=== PATIENT | female | born 1955 | race Caucasian/White ===

== ENCOUNTER 2018-02-13 03:06 | Emergency (ER) | payer OTHER, SELFPAY ==
[2018-02-13] MEDS ORDERED: HYDROcodone/Acetaminophen 5/325 mg Tablet ONE ×2 (04:47→05:23)
[2018-02-13 05:00] LABS: #Basophils 0.1 thou/uL (0.0-0.2); #Eosinphils 0.1 thou/uL (0.0-0.7); #Lymphocytes 2.4 thou/uL (1.20-3.40); #Monocytes 0.7 thou/uL (0.11-0.59); #Neutrophils 9.3 thou/uL (1.40-6.50); %Basophils 0.7 % (0.0-1.0); %Lymphocytes 18.9 % (21.0-51.0); %Monocytes 5.3 % (0.0-10.0); Hemoglobin 14.4 g/dL (12.0-16.0); Mean Corpuscular HGB CONC 33.6 g/dL (32.0-36.0); Mean Corpuscular Hemoglobin 29.7 pg (27.0-31.0); Mean Corpuscular Volume 88.4 fL (78.0-98.0); Mean Platelet Volume 6.6 fL (7.4-10.4); Platelet Count 385 thou/uL (130-400); RBC Distribution Width 14.4 % (11.5-14.5); Red Blood Cell (RBC) Count 4.87 mill/uL (4.20-5.40); White Blood Cell (WBC) Count 12.6 thou/uL (4.8-10.8)
[2018-02-13 05:17] LABS: ALT (SGPT) 9 U/L (8-55); AST (SGOT) 13 U/L (5-34); Alkaline Phosphatase 146 U/L (40-150); Anion Gap 18 mmol/L (10-20); BUN (Urea Nitrogen) 12 mg/dL (9.8-20.1); Bilirubin, Total 0.2 mg/dL (0.2-1.2); Calc. Creatinine Clearance 0 mL/min (70-130); Calcium 9.9 mg/dL (7.8-10.44); Carbon Dioxide 22 mmol/L (23-31); Chloride 102 mmol/L (98-107); Estimated GFR-MDRD 75; Globulin 3.7 g/dL (2.4-3.5); Glucose 107 mg/dL (80-115); Lipase 14 U/L (8-78); Potassium 4.1 mmol/L (3.5-5.1); Protein, Total 7.7 g/dL (6.0-8.3); Sodium 138 mmol/L (136-145)
[2018-02-13 05:20] LABS: Bilirubin Negative (Negative); Blood, Urine Negative (Negative); Clarity CLEAR (Clear); Glucose, Urine (Dipstick) Negative (Negative); Leukocyte Negative (Negative); Nitrite Negative (Negative); Protein, Urine (Dipstick) Negative (Neg-Trace); Specific Gravity, Urine 1.017 (1.002-1.036); Urobilinogen 0.2 mg/dL (0.2-1.0); pH, Urine 6.5 (5.0-9.0)
[2018-02-13 05:20] LABS: CKMB 2.2 ng/mL (0-6.6); Troponin I Less than 0.010 ng/mL (< 0.028)
[2018-02-13] MEDS ORDERED: diphenhydrAMINE 25 MG CAP ONE (05:23)
[2018-02-13] MEDS ORDERED: Haloperidol Lactate 5 MG/ML VIAL ONE (07:31)
[2018-02-13 07:45] LABS: Cocaine Metabolite Screen Not Detected (NotDetected); Medtox Reader # READER 1; Phencyclidine (PCP) Not Detected (NotDetected); THC/Cannabinoid Screen Not Detected (NotDetected)
[2018-02-13 07:46] LABS: Amphetamine Not Detected (NotDetected); Barbiturates Screen Not Detected (NotDetected); Benzodiazepine Screen Detected (NotDetected); Medtox Control Line Valid? VALID (VALID); Methadone Not Detected (NotDetected); Methamphetamine Not Detected (NotDetected); Opiate Screen Not Detected (NotDetected); Oxycodone Screen Not Detected (NotDetected); Tricyclic Screen Detected (NotDetected)
[2018-02-13 07:56] LABS: Acetaminophen Less than 6.0 mcg/mL (10.0-30.0); Alcohol Less than 10 mg/dL (Less than 10); Salicylate Less than 8.0 mg/dL (15.0-30.0)
--- NOTE | 2018-02-13 08:59 | RAD ---
LEFT KNEE 4 VIEWS: HISTORY: Fall, left knee pain. FINDINGS: Degenerative changes are present. No acute fracture or dislocation is identified. POS: [facility]
[2018-02-13] MEDS ORDERED: buPROPion HCl 100 MG TAB PO SCH ×2 (09:15→13:00)
--- NOTE | 2018-02-13 09:31 | RAD ---
PORTABLE CHEST 1 VIEW: DATE: 02/13/18. TIME: 3:15 a.m. HISTORY: Fall. FINDINGS: Comparison is made with the exam of 11/17/16. The heart size is normal. The lungs are expanded without focal areas of consolidation, pneumothorax, or pleural effusions. Chronic changes are again seen. IMPRESSION: No acute process. POS: [facility]
[2018-02-13] MEDS ORDERED: ELMIRON PO SCH (13:00)
[2018-02-13] MEDS ORDERED: ISOVUE-370 76%-LOCM 1 ML ONE (15:02)
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
[2018-02-13] MEDS ORDERED: Acetaminophen 325 MG TAB ONE (16:59)
[2018-02-13] MEDS ORDERED: Albuterol Sulfate 2.5 mg/0.5 ml Neb ONE (21:32)
[2018-02-14] MEDS ORDERED: Lorazepam 1 MG TAB ONE (06:07)
[2018-02-14] MEDS ORDERED: hydrOXYzine 25 MG TAB ONE (15:45)
[2018-02-14] MEDS ORDERED: hydrOXYzine Pamoate 25 mg Capsule ONE (15:47)
== END 2018-02-13 23:25 | disposition home or self-care (01) ==
LOC: ERS 03:06
DX: S80.01XA Contusion of right knee, initial encounter (principal); F29 Unspecified psychosis not due to a substance or known physiological condition; E78.5 Hyperlipidemia, unspecified; M19.90 Unspecified osteoarthritis, unspecified site; J44.9 Chronic obstructive pulmonary disease, unspecified; F41.9 Anxiety disorder, unspecified; F32.9 Major depressive disorder, single episode, unspecified; F17.210 Nicotine dependence, cigarettes, uncomplicated; Z79.899 Other long term (current) drug therapy; W19.XXXA Unspecified fall, initial encounter
CPT/HCPCS: 36415; 51701; 70450; 71045; 74177; 80053; 80306; 80307; 81003; 82553; 83690; 84443; 84484; 85025; 93005; 96372; A4353; J1630; J7611; J7620

== ENCOUNTER 2019-05-14 07:54 | Emergency (ER) | payer SELFPAY ==
[2019-05-14 08:42] LABS: Bilirubin Negative (Negative); Blood, Urine Negative (Negative); Clarity Clear (Clear); Glucose, Urine (Dipstick) Normal (Negative); Leukocyte Negative Leu/uL (Negative); Nitrite Negative (Negative); Protein, Urine (Dipstick) Negative (Neg-Trace); Urobilinogen Normal mg/dL (Less than 2)
== END 2019-05-14 09:12 | disposition home or self-care (01) ==
LOC: ERS 07:54
DX: R30.0 Dysuria (principal); R10.30 Lower abdominal pain, unspecified; I10 Essential (primary) hypertension; J44.9 Chronic obstructive pulmonary disease, unspecified; F17.210 Nicotine dependence, cigarettes, uncomplicated
CPT/HCPCS: 81003; 87086; 99283

== ENCOUNTER 2021-02-17 08:00 | Inpatient (IN) | payer MEDICARE ==
[2021-02-17] MEDS ORDERED: methylPREDNISolone Sod Succ/PF 125 MG/2 ML VIAL ONE (08:24)
[2021-02-17 08:53] LABS: #Basophils 0.1 thou/uL (0.0-0.2); #Eosinphils 0.5 thou/uL (0.0-0.7); #Lymphocytes 2.1 thou/uL (1.20-3.40); #Monocytes 0.6 thou/uL (0.11-0.59); #Neutrophils 4.5 thou/uL (1.40-6.50); %Basophils 0.9 % (0.0-1.0); %Eosinophils 6.4 % (0.0-10.0); %Lymphocytes 27.4 % (21.0-51.0); %Monocytes 7.1 % (0.0-10.0); %Neutrophils 58.2 % (42.0-75.0); Hemoglobin 14.1 g/dL (12.0-16.0); Mean Corpuscular HGB CONC 33.6 g/dL (32.0-36.0); Mean Corpuscular Hemoglobin 29.9 pg (27.0-31.0); Mean Corpuscular Volume 89.1 fL (78.0-98.0); Mean Platelet Volume 6.9 fL (7.4-10.4); Platelet Count 313 thou/uL (130-400); Red Blood Cell (RBC) Count 4.73 mill/uL (4.20-5.40); White Blood Cell (WBC) Count 7.8 thou/uL (4.8-10.8)
[2021-02-17 09:11] LABS: ALT (SGPT) 14 U/L (8-55); AST (SGOT) 15 U/L (5-34); Albumin 4.1 g/dL (3.4-4.8); Alkaline Phosphatase 111 U/L (40-110); Anion Gap 14 mmol/L (10-20); BUN (Urea Nitrogen) 16 mg/dL (9.8-20.1); Bilirubin, Total 0.2 mg/dL (0.2-1.2); Calc. Creatinine Clearance 0 mL/min (70-130); Calcium 9.9 mg/dL (7.8-10.44); Carbon Dioxide 22 mmol/L (23-31); Chloride 107 mmol/L (98-107); Globulin 3.5 g/dL (2.4-3.5); Glucose 110 mg/dL (80-115); Magnesium 1.7 mg/dL (1.6-2.6); Protein, Total 7.6 g/dL (5.8-8.1); Sodium 139 mmol/L (136-145)
[2021-02-17] MEDS ORDERED: Iopamidol-370 76% 500 ML 1 ML ONE (09:50)
[2021-02-17] MEDS ORDERED: cefTRIAXone\\ROCEPHIN 2 GM VIAL ONE (14:15)
[2021-02-17 15:05] LABS: SARS-CoV-2 NAA Rapid Test Not Detected (NotDetected)
[2021-02-17 15:21] LABS: Troponin I Less than 0.010 ng/mL (< 0.028)
[2021-02-17] MEDS ORDERED: Acetaminophen 325 MG TAB PO PRN (16:49)
[2021-02-17 19:04] VITALS: BMI 27.6
[2021-02-17] MEDS ORDERED: Calcium Carbonate 500 MG ChewTAB PO PRN (22:54)
[2021-02-17] MEDS ORDERED: lamoTRIgine 100 MG TAB PO SCH (23:00)
[2021-02-18] LABS: Bacteria/HPF None Seen HPF (None Seen); Bilirubin Negative (Negative); Blood, Urine Negative (Negative); Clarity Clear (Clear); Glucose, Urine (Dipstick) Normal (Negative); Ketone, Urine Negative (Negative); Leukocyte Negative Leu/uL (Negative); Nitrite Negative (Negative); Protein, Urine (Dipstick) Negative (Neg-Trace); RBC/HPF 0-3 HPF (0-3); Squamous Epithelial 0-3 HPF (0-3); Urobilinogen Normal mg/dL (Less than 2); WBC/HPF 0-3 HPF (0-3); pH, Urine 6.5 (5.0-9.0)
[2021-02-18 00:07] LABS: Amphetamine Not Detected (NotDetected); Barbiturates Screen Not Detected (NotDetected); Benzodiazepine Screen Not Detected (NotDetected); Cocaine Metabolite Screen Not Detected (NotDetected); Methadone Not Detected (NotDetected); Methamphetamine Not Detected (NotDetected); Opiate Screen Not Detected (NotDetected); Oxycodone Screen Not Detected (NotDetected); Phencyclidine (PCP) Not Detected (NotDetected); THC/Cannabinoid Screen Not Detected (NotDetected); Tricyclic Screen Detected (NotDetected)
[2021-02-18 00:08] LABS: Urine Culture Reflex No No
[2021-02-18] MEDS: Ibuprofen 200 MG TAB PO PRN ×2 (02:09→20:47)
[2021-02-18] MEDS ORDERED: Doxepin HCl 25 MG CAP PO SCH ×2 (03:45→21:00)
[2021-02-18 05:17] LABS: #Lymphocytes 1.8 thou/uL (1.20-3.40); #Monocytes 0.9 thou/uL (0.11-0.59); #Neutrophils 7.9 thou/uL (1.40-6.50); %Basophils 0.2 % (0.0-1.0); %Eosinophils 0.1 % (0.0-10.0); %Lymphocytes 16.8 % (21.0-51.0); %Monocytes 8.2 % (0.0-10.0); %Neutrophils 74.7 % (42.0-75.0); Hemoglobin 13.3 g/dL (12.0-16.0); Mean Corpuscular HGB CONC 33.8 g/dL (32.0-36.0); Mean Corpuscular Volume 88.9 fL (78.0-98.0); Mean Platelet Volume 6.9 fL (7.4-10.4); Platelet Count 334 thou/uL (130-400); RBC Distribution Width 12.1 % (11.5-14.5); Red Blood Cell (RBC) Count 4.41 mill/uL (4.20-5.40); White Blood Cell (WBC) Count 10.6 thou/uL (4.8-10.8)
[2021-02-18 05:36] LABS: Anion Gap 13 mmol/L (10-20); BUN (Urea Nitrogen) 18 mg/dL (9.8-20.1); Calc. Creatinine Clearance 82 mL/min (70-130); Carbon Dioxide 23 mmol/L (23-31); Chloride 106 mmol/L (98-107); Glucose 105 mg/dL (80-115); Potassium 3.8 mmol/L (3.5-5.1); Sodium 138 mmol/L (136-145)
[2021-02-18] MEDS: Polyethylene Glycol 3350 17 GM Packet PO SCH (10:15)
[2021-02-18] MEDS: Enoxaparin Sodium 40 MG/0.4 ML SYRINGE SC SCH (10:15)
[2021-02-18] MEDS: Propranolol 10 MG TAB PO SCH ×2 (12:03→19:32)
[2021-02-18] MEDS ORDERED: lamoTRIgine 100 MG TAB PO SCH (21:00)
[2021-02-19] MEDS: Propranolol 10 MG TAB PO SCH ×3 (00:53→11:23)
[2021-02-19] MEDS: Polyethylene Glycol 3350 17 GM Packet PO SCH (08:24)
[2021-02-19] MEDS: Enoxaparin Sodium 40 MG/0.4 ML SYRINGE SC SCH (08:24)
[2021-02-19 15:38] VITALS: BP 180/111; TEMP 98.6
== END 2021-02-19 17:03 | disposition home or self-care (01) | DRG 880 ==
LOC: ERS 08:00 → 2NO 14:14 → INTOOBSV 14:14 → OBSVTOIN 02-18 15:49
PROVIDERS: ADMIT Family Medicine; ATTEND Family Medicine
DX: F41.9 Anxiety disorder, unspecified (principal); Z20.822 Contact with and (suspected) exposure to COVID-19; T43.501A Poisoning by unspecified antipsychotics and neuroleptics, accidental (unintentional), initial encounter; F39 Unspecified mood [affective] disorder; G47.00 Insomnia, unspecified; F31.9 Bipolar disorder, unspecified; I45.81 Long QT syndrome; R07.89 Other chest pain; J44.9 Chronic obstructive pulmonary disease, unspecified; I10 Essential (primary) hypertension; M19.90 Unspecified osteoarthritis, unspecified site; G89.29 Other chronic pain; M25.559 Pain in unspecified hip; M54.9 Dorsalgia, unspecified; Z96.641 Presence of right artificial hip joint; I49.3 Ventricular premature depolarization; T48.6X5A Adverse effect of antiasthmatics, initial encounter; Z88.1 Allergy status to other antibiotic agents; Z88.5 Allergy status to narcotic agent; Z88.0 Allergy status to penicillin; Z79.899 Other long term (current) drug therapy; Z82.3 Family history of stroke; Z82.49 Family history of ischemic heart disease and other diseases of the circulatory system; Z87.891 Personal history of nicotine dependence; Z91.5 Personal history of self-harm
CPT/HCPCS: 0240U; 36415; 71045; 71275; 80048; 80053; 80306; 81001; 83735; 83880; 84145; 84443; 84484; 85025; 85379; 87040; 93005; 93010; 94640; 96365; 96372; 96375; G0378; J0696; J1650; J2930; J7620; Q9967

== ENCOUNTER 2021-03-31 10:15 | Inpatient (IN) | payer MEDICARE ==
[2021-03-31 11:04] LABS: #Eosinphils 0.2 thou/uL (0.0-0.7); #Lymphocytes 2.5 thou/uL (1.20-3.40); #Monocytes 0.7 thou/uL (0.11-0.59); %Basophils 0.4 % (0.0-1.0); %Eosinophils 1.4 % (0.0-10.0); %Lymphocytes 21.7 % (21.0-51.0); %Monocytes 6.1 % (0.0-10.0); %Neutrophils 70.4 % (42.0-75.0); Hemoglobin 13.4 g/dL (12.0-16.0); Mean Corpuscular HGB CONC 32.5 g/dL (32.0-36.0); Mean Corpuscular Hemoglobin 29.8 pg (27.0-31.0); Mean Corpuscular Volume 91.5 fL (78.0-98.0); Mean Platelet Volume 7.3 fL (7.4-10.4); Platelet Count 353 thou/uL (130-400); RBC Distribution Width 12.3 % (11.5-14.5); Red Blood Cell (RBC) Count 4.49 mill/uL (4.20-5.40); White Blood Cell (WBC) Count 11.4 thou/uL (4.8-10.8)
[2021-03-31 11:18] LABS: Acetaminophen Less than 6.0 mcg/mL (10.0-30.0); Alcohol Less than 10 mg/dL (Less than 10); CK (CPK) 22 U/L (29-168); Magnesium 1.6 mg/dL (1.6-2.6); Salicylate Less than 8.0 mg/dL (15.0-30.0)
[2021-03-31 11:21] LABS: ALT (SGPT) 22 U/L (8-55); AST (SGOT) 19 U/L (5-34); Albumin 3.7 g/dL (3.4-4.8); Alkaline Phosphatase 78 U/L (40-110); BUN (Urea Nitrogen) 23 mg/dL (9.8-20.1); Bilirubin, Total 0.3 mg/dL (0.2-1.2); Calc. Creatinine Clearance 0 mL/min (70-130); Calcium 11.8 mg/dL (7.8-10.44); Globulin 2.7 g/dL (2.4-3.5); Glucose 117 mg/dL (80-115); Protein, Total 6.4 g/dL (5.8-8.1)
[2021-03-31] MEDS ORDERED: Sodium Bicarb 50 MEQ/50 ML Abboject 8.4% SYRINGE ONE ×2 (11:23→13:03)
[2021-03-31 11:30] LABS: Chloride 93 mmol/L (98-107); Potassium 3.7 mmol/L (3.5-5.1); Sodium 143 mmol/L (136-145)
[2021-03-31 11:33] LABS: Anion Gap 17 mmol/L (10-20); Carbon Dioxide 37 mmol/L (23-31)
[2021-03-31 12:27] LABS: Bilirubin Negative (Negative); Blood, Urine Negative (Negative); Clarity Turbid (Clear); Glucose, Urine (Dipstick) Normal (Negative); Ketone, Urine Negative (Negative); Leukocyte Negative Leu/uL (Negative); Nitrite Negative (Negative); Protein, Urine (Dipstick) Negative (Neg-Trace); Specific Gravity, Urine 1.013 (1.002-1.036); Urobilinogen Normal mg/dL (Less than 2); pH, Urine 7.5 (5.0-9.0)
[2021-03-31] MEDS ORDERED: Sodium Bicarbonate 150 MEQ in Dextrose 5% in Water 1,000 ML IV SCH ×2 (12:45→15:45)
[2021-03-31 12:46] LABS: Amphetamine Not Detected (NotDetected); Barbiturates Screen Not Detected (NotDetected); Benzodiazepine Screen Not Detected (NotDetected); Cocaine Metabolite Screen Not Detected (NotDetected); Methadone Not Detected (NotDetected); Methamphetamine Not Detected (NotDetected); Opiate Screen Not Detected (NotDetected); Oxycodone Screen Not Detected (NotDetected); Phencyclidine (PCP) Not Detected (NotDetected); THC/Cannabinoid Screen Not Detected (NotDetected); Tricyclic Screen Detected (NotDetected)
[2021-03-31] MEDS ORDERED: Magnesium 2 GM/50 ML BAG (IN WATER) ONE (12:48)
[2021-03-31] MEDS ORDERED: Acetaminophen 325 MG TAB PO PRN (15:24)
[2021-03-31 16:03] VITALS: BMI 24.9
[2021-03-31] MEDS ORDERED: Albuterol Sulfate 2.5 mg/3 ml Neb NEB PRN (16:52)
[2021-03-31] MEDS ORDERED: Lorazepam 2 MG/ML VIAL SLOW IVP PRN (16:59)
[2021-03-31 17:40] LABS: Troponin I Less than 0.010 ng/mL (< 0.028)
[2021-03-31 18:33] LABS: Anion Gap 20 mmol/L (10-20); BUN (Urea Nitrogen) 20 mg/dL (9.8-20.1); Calc. Creatinine Clearance 44 mL/min (70-130); Calcium 10.5 mg/dL (7.8-10.44); Carbon Dioxide 33 mmol/L (23-31); Chloride 97 mmol/L (98-107); Glucose 130 mg/dL (80-115); Potassium 3.4 mmol/L (3.5-5.1); Sodium 147 mmol/L (136-145)
[2021-03-31] MEDS: Budesonide 0.25 MG/2 ML NEB NEB SCH (18:47)
[2021-03-31] MEDS: Atorvastatin Calcium 40 MG TAB PO SCH (21:09)
[2021-03-31 22:20] LABS: Actual Bicarbonate (HCO3a) 44.7 mEq/L (22-28); Base Excess (BEa) 20.2 mEq/L (-2.0 to +3.0); CO2 Tension 49.2 mmHg (35.0-45.0); Calcium, Ionized (arterial) 1.17 mmol/L (1.12-1.30); Carboxyhemoglobin (COHb) 0.1 gm% (0.0-3.0); Hemoglobin (Hb) 12.2 g/dL (12.0-16.0); Potassium - ABG Lab 2.43 mmol/L (3.70-5.30)
[2021-03-31 22:21] LABS: pH, Arterial 7.58 (7.35-7.45)
[2021-03-31 22:22] LABS: O2 Tension (PaO2), arterial 58.9 mmHg (> 80.0); Puncture Site RRA
[2021-03-31 22:56] LABS: BUN (Urea Nitrogen) 17 mg/dL (9.8-20.1); Calc. Creatinine Clearance 48 mL/min (70-130); Glucose 96 mg/dL (80-115); Magnesium 1.7 mg/dL (1.6-2.6)
[2021-03-31 23:10] LABS: Anion Gap 20 mmol/L (10-20); Carbon Dioxide 36 mmol/L (23-31); Chloride 92 mmol/L (98-107); Potassium 2.7 mmol/L (3.5-5.1); Sodium 145 mmol/L (136-145)
[2021-03-31] MEDS ORDERED: Potassium Chloride 20 MEQ in Premix Bag 1 BAG IVPB SCH (23:30)
[2021-03-31] MEDS ORDERED: Potassium Chloride 20 MEQ TAB PO SCH (23:30)
[2021-04-01 00:36] LABS: SARS-CoV-2 PCR by NAA Not Detected (NotDetected)
[2021-04-01 01:04] LABS: Actual Bicarbonate (HCO3a) 44.8 mEq/L (22-28); Base Excess (BEa) 19.9 mEq/L (-2.0 to +3.0); CO2 Tension 51.3 mmHg (35.0-45.0); Calcium, Ionized (arterial) 1.18 mmol/L (1.12-1.30); Carboxyhemoglobin (COHb) 0.1 gm% (0.0-3.0); Hemoglobin (Hb) 12.2 g/dL (12.0-16.0); O2 Tension (PaO2), arterial 63.7 mmHg (> 80.0); Potassium - ABG Lab 2.95 mmol/L (3.70-5.30)
[2021-04-01 01:06] LABS: ALV-art Gradient 21.905 mmHg (0-20); Puncture Site LRA; pH, Arterial 7.56 (7.35-7.45)
[2021-04-01] MEDS ORDERED: Potassium Chloride 20 MEQ TAB PO SCH ×2 (01:30→07:00)
[2021-04-01 01:34] LABS: BUN (Urea Nitrogen) 16 mg/dL (9.8-20.1); Calc. Creatinine Clearance 45 mL/min (70-130); Calcium 10.1 mg/dL (7.8-10.44); Glucose 101 mg/dL (80-115); Magnesium 1.6 mg/dL (1.6-2.6)
[2021-04-01 01:44] LABS: Anion Gap 12 mmol/L (10-20); Chloride 93 mmol/L (98-107); Potassium 3.1 mmol/L (3.5-5.1); Sodium 144 mmol/L (136-145)
[2021-04-01 01:48] LABS: Carbon Dioxide 42 mmol/L (23-31)
[2021-04-01 05:19] LABS: #Basophils 0.1 thou/uL (0.0-0.2); #Eosinphils 0.3 thou/uL (0.0-0.7); #Lymphocytes 1.7 thou/uL (1.20-3.40); #Monocytes 0.6 thou/uL (0.11-0.59); #Neutrophils 6.3 thou/uL (1.40-6.50); %Basophils 0.8 % (0.0-1.0); %Eosinophils 3.3 % (0.0-10.0); %Lymphocytes 18.6 % (21.0-51.0); %Neutrophils 70.4 % (42.0-75.0); Hemoglobin 11.6 g/dL (12.0-16.0); Mean Corpuscular HGB CONC 30.5 g/dL (32.0-36.0); Mean Corpuscular Hemoglobin 27.6 pg (27.0-31.0); Mean Corpuscular Volume 90.5 fL (78.0-98.0); Mean Platelet Volume 7.1 fL (7.4-10.4); Platelet Count 324 thou/uL (130-400); RBC Distribution Width 12.3 % (11.5-14.5)
[2021-04-01 05:44] LABS: ALT (SGPT) 23 U/L (8-55); AST (SGOT) 24 U/L (5-34); Albumin 3.3 g/dL (3.4-4.8); Alkaline Phosphatase 73 U/L (40-110); BUN (Urea Nitrogen) 15 mg/dL (9.8-20.1); Bilirubin, Total 0.4 mg/dL (0.2-1.2); Calc. Creatinine Clearance 45 mL/min (70-130); Calcium 9.7 mg/dL (7.8-10.44); Globulin 2.4 g/dL (2.4-3.5); Glucose 124 mg/dL (80-115); Magnesium 1.6 mg/dL (1.6-2.6); Protein, Total 5.7 g/dL (5.8-8.1)
[2021-04-01 05:53] LABS: Anion Gap 10 mmol/L (10-20); Chloride 94 mmol/L (98-107); Potassium 3.2 mmol/L (3.5-5.1); Sodium 143 mmol/L (136-145)
[2021-04-01 05:54] LABS: Carbon Dioxide 42 mmol/L (23-31)
[2021-04-01] MEDS ORDERED: Magnesium Sulfate 2 GM in Sodium Chloride 0.9% 100 ML IVPB SCH (06:30)
[2021-04-01] MEDS ORDERED: Magnesium 2 GM/50 ML 2 GM in Premix Bag 1 BAG IVPB SCH (07:00)
[2021-04-01] MEDS: lamoTRIgine 100 MG TAB PO SCH (08:12)
[2021-04-01] MEDS ORDERED: Lisinopril 10 MG TAB PO SCH (09:00)
[2021-04-01] MEDS: Budesonide 0.25 MG/2 ML NEB NEB SCH ×2 (09:57→18:52)
[2021-04-01] MEDS ORDERED: hydrALAZINE 20 MG/ML VIAL SLOW IVP PRN (14:11)
[2021-04-01] MEDS: Atorvastatin Calcium 40 MG TAB PO SCH (21:53)
[2021-04-02 05:10] LABS: #Basophils 0.1 thou/uL (0.0-0.2); #Eosinphils 0.6 thou/uL (0.0-0.7); #Lymphocytes 2.1 thou/uL (1.20-3.40); #Monocytes 0.6 thou/uL (0.11-0.59); #Neutrophils 5.3 thou/uL (1.40-6.50); %Basophils 1.1 % (0.0-1.0); %Eosinophils 6.7 % (0.0-10.0); %Lymphocytes 24.1 % (21.0-51.0); %Monocytes 7.2 % (0.0-10.0); %Neutrophils 60.8 % (42.0-75.0); Hemoglobin 11.8 g/dL (12.0-16.0); Mean Corpuscular HGB CONC 32.2 g/dL (32.0-36.0); Mean Corpuscular Hemoglobin 28.8 pg (27.0-31.0); Mean Corpuscular Volume 89.7 fL (78.0-98.0); Mean Platelet Volume 7.5 fL (7.4-10.4); Platelet Count 324 thou/uL (130-400); RBC Distribution Width 12.3 % (11.5-14.5); Red Blood Cell (RBC) Count 4.11 mill/uL (4.20-5.40); White Blood Cell (WBC) Count 8.8 thou/uL (4.8-10.8)
[2021-04-02 05:33] LABS: ALT (SGPT) 36 U/L (8-55); AST (SGOT) 36 U/L (5-34); Albumin 3.4 g/dL (3.4-4.8); Alkaline Phosphatase 90 U/L (40-110); Anion Gap 14 mmol/L (10-20); BUN (Urea Nitrogen) 11 mg/dL (9.8-20.1); Bilirubin, Total 0.5 mg/dL (0.2-1.2); Calc. Creatinine Clearance 52 mL/min (70-130); Calcium 9.1 mg/dL (7.8-10.44); Carbon Dioxide 28 mmol/L (23-31); Chloride 102 mmol/L (98-107); Globulin 2.6 g/dL (2.4-3.5); Glucose 101 mg/dL (80-115); Potassium 3.5 mmol/L (3.5-5.1); Sodium 140 mmol/L (136-145)
[2021-04-02] MEDS: Budesonide 0.25 MG/2 ML NEB NEB SCH ×2 (07:07→18:31)
[2021-04-02] MEDS: Lisinopril 10 MG TAB PO SCH (08:35)
[2021-04-02] MEDS: lamoTRIgine 100 MG TAB PO SCH (08:35)
[2021-04-02] MEDS ORDERED: Famotidine 20 MG TAB PO SCH (19:40)
[2021-04-02] MEDS: Atorvastatin Calcium 40 MG TAB PO SCH (20:11)
[2021-04-03 05:08] LABS: #Basophils 0.1 thou/uL (0.0-0.2); #Eosinphils 0.7 thou/uL (0.0-0.7); #Lymphocytes 2.4 thou/uL (1.20-3.40); #Monocytes 0.7 thou/uL (0.11-0.59); #Neutrophils 4.6 thou/uL (1.40-6.50); %Basophils 1.1 % (0.0-1.0); %Lymphocytes 28.6 % (21.0-51.0); %Monocytes 8.5 % (0.0-10.0); %Neutrophils 53.7 % (42.0-75.0); Hemoglobin 11.5 g/dL (12.0-16.0); Mean Corpuscular HGB CONC 32.1 g/dL (32.0-36.0); Mean Corpuscular Hemoglobin 29.1 pg (27.0-31.0); Mean Corpuscular Volume 90.6 fL (78.0-98.0); Mean Platelet Volume 7.4 fL (7.4-10.4); Platelet Count 313 thou/uL (130-400); RBC Distribution Width 12.2 % (11.5-14.5); Red Blood Cell (RBC) Count 3.94 mill/uL (4.20-5.40); White Blood Cell (WBC) Count 8.5 thou/uL (4.8-10.8)
[2021-04-03] MEDS ORDERED: Ibuprofen 600 MG TAB PO SCH (05:19)
[2021-04-03 05:31] LABS: ALT (SGPT) 39 U/L (8-55); AST (SGOT) 26 U/L (5-34); Albumin 3.3 g/dL (3.4-4.8); Alkaline Phosphatase 90 U/L (40-110); Anion Gap 9 mmol/L (10-20); BUN (Urea Nitrogen) 11 mg/dL (9.8-20.1); Bilirubin, Total 0.3 mg/dL (0.2-1.2); Calc. Creatinine Clearance 52 mL/min (70-130); Calcium 8.8 mg/dL (7.8-10.44); Carbon Dioxide 27 mmol/L (23-31); Chloride 105 mmol/L (98-107); Globulin 2.4 g/dL (2.4-3.5); Glucose 119 mg/dL (80-115); Potassium 3.3 mmol/L (3.5-5.1); Protein, Total 5.7 g/dL (5.8-8.1); Sodium 138 mmol/L (136-145)
[2021-04-03] MEDS ORDERED: Potassium Chloride 20 MEQ TAB PO SCH (07:00)
[2021-04-03] MEDS: lamoTRIgine 100 MG TAB PO SCH (07:59)
[2021-04-03] MEDS: Lisinopril 10 MG TAB PO SCH (07:59)
[2021-04-03] MEDS: Budesonide 0.25 MG/2 ML NEB NEB SCH (14:44)
[2021-04-03 15:48] VITALS: BP 138/87; TEMP 97.8
== END 2021-04-03 17:05 | DRG 918 ==
LOC: ERS 10:15 → ERHOLD 12:45 → 2NO 16:32
PROVIDERS: ADMIT Internal Medicine; ATTEND Internal Medicine
DX: T43.012A Poisoning by tricyclic antidepressants, intentional self-harm, initial encounter (principal); N17.9 Acute kidney failure, unspecified; Z20.822 Contact with and (suspected) exposure to COVID-19; Z78.1 Physical restraint status; J44.9 Chronic obstructive pulmonary disease, unspecified; I10 Essential (primary) hypertension; M19.90 Unspecified osteoarthritis, unspecified site; E78.5 Hyperlipidemia, unspecified; G89.29 Other chronic pain; M25.559 Pain in unspecified hip; M54.9 Dorsalgia, unspecified; G62.9 Polyneuropathy, unspecified; F17.210 Nicotine dependence, cigarettes, uncomplicated; F41.9 Anxiety disorder, unspecified; I45.81 Long QT syndrome; F31.9 Bipolar disorder, unspecified; E87.6 Hypokalemia; Z91.5 Personal history of self-harm; Z88.5 Allergy status to narcotic agent; Z88.0 Allergy status to penicillin; Z88.8 Allergy status to other drugs, medicaments and biological substances; Z79.899 Other long term (current) drug therapy; Z79.51 Long term (current) use of inhaled steroids; Z91.14 Patient's other noncompliance with medication regimen
CPT/HCPCS: 36415; 36600; 80053; 80306; 80307; 81003; 82550; 82805; 83735; 84443; 84484; 85025; 93005; 93010; 94640; 96365; 96366; 96367; 96376; J3475; J3480; J7070; J7620; J7626; U0003; U0005

== ENCOUNTER 2021-04-15 18:11 | Emergency (ER) | payer MEDICARE ==
[2021-04-15 18:57] LABS: #Basophils 0.1 thou/uL (0.0-0.2); #Eosinphils 0.2 thou/uL (0.0-0.7); #Lymphocytes 2.2 thou/uL (1.20-3.40); #Monocytes 0.7 thou/uL (0.11-0.59); #Neutrophils 5.8 thou/uL (1.40-6.50); %Eosinophils 2.7 % (0.0-10.0); %Lymphocytes 24.6 % (21.0-51.0); %Neutrophils 63.8 % (42.0-75.0); Hemoglobin 14.4 g/dL (12.0-16.0); Mean Corpuscular HGB CONC 33.9 g/dL (32.0-36.0); Mean Corpuscular Hemoglobin 30.6 pg (27.0-31.0); Mean Corpuscular Volume 90.3 fL (78.0-98.0); Mean Platelet Volume 6.7 fL (7.4-10.4); Platelet Count 425 thou/uL (130-400); RBC Distribution Width 13.3 % (11.5-14.5); Red Blood Cell (RBC) Count 4.71 mill/uL (4.20-5.40); White Blood Cell (WBC) Count 9.1 thou/uL (4.8-10.8)
[2021-04-15 19:21] LABS: ALT (SGPT) 55 U/L (8-55); AST (SGOT) 27 U/L (5-34); Albumin 4.2 g/dL (3.4-4.8); Alkaline Phosphatase 98 U/L (40-110); Anion Gap 16 mmol/L (10-20); BUN (Urea Nitrogen) 23 mg/dL (9.8-20.1); Bilirubin, Total 0.3 mg/dL (0.2-1.2); CK (CPK) 70 U/L (29-168); Calc. Creatinine Clearance 0 mL/min (70-130); Calcium 10.7 mg/dL (7.8-10.44); Carbon Dioxide 26 mmol/L (23-31); Chloride 103 mmol/L (98-107); Globulin 3.2 g/dL (2.4-3.5); Glucose 118 mg/dL (80-115); Potassium 4.4 mmol/L (3.5-5.1); Protein, Total 7.4 g/dL (5.8-8.1); Sodium 141 mmol/L (136-145)
[2021-04-15 19:24] LABS: CKMB 1.2 ng/mL (0-6.6)
[2021-04-15] MEDS ORDERED: chlorproMAZINE HCl 25 MG TAB PO SCH (22:00)
[2021-04-15 23:03] LABS: Troponin I Less than 0.010 ng/mL (< 0.028)
== END 2021-04-16 00:29 | disposition home or self-care (01) ==
LOC: ERS 18:11
DX: R07.2 Precordial pain (principal); J44.9 Chronic obstructive pulmonary disease, unspecified; M19.90 Unspecified osteoarthritis, unspecified site; E78.5 Hyperlipidemia, unspecified; G62.9 Polyneuropathy, unspecified; Z79.899 Other long term (current) drug therapy
CPT/HCPCS: 36415; 71045; 80053; 82550; 82553; 83880; 84484; 85025; 93005; Q0161

== ENCOUNTER 2021-05-30 09:23 | Emergency (ER) | payer MEDICARE ==
[2021-05-30 10:04] LABS: #Basophils 0.1 thou/uL (0.0-0.2); #Eosinphils 0.6 thou/uL (0.0-0.7); #Lymphocytes 2.4 thou/uL (1.20-3.40); #Monocytes 0.4 thou/uL (0.11-0.59); #Neutrophils 2.9 thou/uL (1.40-6.50); %Basophils 1.5 % (0.0-1.0); %Eosinophils 9.2 % (0.0-10.0); %Lymphocytes 37.4 % (21.0-51.0); %Monocytes 6.8 % (0.0-10.0); Hemoglobin 15.7 g/dL (12.0-16.0); Mean Corpuscular HGB CONC 34.6 g/dL (32.0-36.0); Mean Corpuscular Hemoglobin 31.8 pg (27.0-31.0); Mean Corpuscular Volume 91.8 fL (78.0-98.0); Mean Platelet Volume 6.4 fL (7.4-10.4); Platelet Count 367 thou/uL (130-400); RBC Distribution Width 13.2 % (11.5-14.5); Red Blood Cell (RBC) Count 4.93 mill/uL (4.20-5.40); White Blood Cell (WBC) Count 6.3 thou/uL (4.8-10.8)
[2021-05-30] MEDS ORDERED: Aspirin Chewable 81 MG TAB ONE (10:17)
[2021-05-30] MEDS ORDERED: Dexamethasone 10 MG/ML VIAL ONE (10:17)
[2021-05-30 10:24] LABS: ALT (SGPT) 25 U/L (8-55); AST (SGOT) 20 U/L (5-34); Albumin 4.2 g/dL (3.4-4.8); Alkaline Phosphatase 91 U/L (40-110); Anion Gap 12 mmol/L (10-20); BUN (Urea Nitrogen) 13 mg/dL (9.8-20.1); Bilirubin, Total 0.3 mg/dL (0.2-1.2); Calc. Creatinine Clearance 0 mL/min (70-130); Calcium 10.1 mg/dL (7.8-10.44); Carbon Dioxide 23 mmol/L (23-31); Chloride 107 mmol/L (98-107); Globulin 3.3 g/dL (2.4-3.5); Glucose 115 mg/dL (80-115); Potassium 3.9 mmol/L (3.5-5.1); Protein, Total 7.5 g/dL (5.8-8.1); Sodium 138 mmol/L (136-145)
[2021-05-30 11:04] LABS: SARS-CoV-2 NAA Rapid Test Not Detected (NotDetected)
== END 2021-05-30 12:30 | disposition home or self-care (01) ==
LOC: ERS 09:23
DX: J44.1 Chronic obstructive pulmonary disease with (acute) exacerbation (principal); R00.0 Tachycardia, unspecified; I10 Essential (primary) hypertension; E78.5 Hyperlipidemia, unspecified; M19.90 Unspecified osteoarthritis, unspecified site; F17.210 Nicotine dependence, cigarettes, uncomplicated; G62.9 Polyneuropathy, unspecified; Z20.822 Contact with and (suspected) exposure to COVID-19
CPT/HCPCS: 0240U; 71045; 80053; 83880; 84484; 85025; 85379; 93005; 94640; 96374; 99285; J1100

== ENCOUNTER 2021-07-14 23:30 | Emergency (ER) | payer MEDICARE ==
[2021-07-14] MEDS ORDERED: methylPREDNISolone Sod Succ/PF 125 MG/2 ML VIAL ONE (23:53)
[2021-07-15 00:23] LABS: #Basophils 0.1 thou/uL (0.0-0.2); #Eosinphils 0.6 thou/uL (0.0-0.7); #Lymphocytes 2.3 thou/uL (1.20-3.40); #Monocytes 0.7 thou/uL (0.11-0.59); #Neutrophils 4.6 thou/uL (1.40-6.50); %Basophils 1.6 % (0.0-1.0); %Eosinophils 6.8 % (0.0-10.0); %Lymphocytes 28.3 % (21.0-51.0); %Monocytes 8.2 % (0.0-10.0); %Neutrophils 55.1 % (42.0-75.0); Hemoglobin 15.3 g/dL (12.0-16.0); Mean Corpuscular HGB CONC 35.4 g/dL (32.0-36.0); Mean Corpuscular Hemoglobin 32.5 pg (27.0-31.0); Mean Corpuscular Volume 91.7 fL (78.0-98.0); Mean Platelet Volume 6.1 fL (7.4-10.4); Platelet Count 350 thou/uL (130-400); RBC Distribution Width 11.8 % (11.5-14.5); Red Blood Cell (RBC) Count 4.72 mill/uL (4.20-5.40); White Blood Cell (WBC) Count 8.3 thou/uL (4.8-10.8)
[2021-07-15] MEDS ORDERED: hydrALAZINE 20 MG/ML VIAL ONE (00:31)
[2021-07-15 00:45] LABS: ALT (SGPT) 12 U/L (8-55); AST (SGOT) 15 U/L (5-34); Albumin 4.1 g/dL (3.4-4.8); Alkaline Phosphatase 89 U/L (40-110); Anion Gap 14 mmol/L (10-20); BUN (Urea Nitrogen) 14 mg/dL (9.8-20.1); Bilirubin, Total 0.3 mg/dL (0.2-1.2); Calc. Creatinine Clearance 0 mL/min (70-130); Calcium 10.6 mg/dL (7.8-10.44); Carbon Dioxide 29 mmol/L (23-31); Chloride 100 mmol/L (98-107); Globulin 3.5 g/dL (2.4-3.5); Glucose 108 mg/dL (80-115); Potassium 3.6 mmol/L (3.5-5.1); Protein, Total 7.6 g/dL (5.8-8.1); Sodium 139 mmol/L (136-145)
[2021-07-15] MEDS ORDERED: Ondansetron PF 4 MG/2 ML Vial ONE ×2 (01:11→01:20)
== END 2021-07-15 01:35 | disposition home or self-care (01) ==
LOC: ERS 23:30
DX: J44.1 Chronic obstructive pulmonary disease with (acute) exacerbation (principal); I10 Essential (primary) hypertension; M19.90 Unspecified osteoarthritis, unspecified site; E78.5 Hyperlipidemia, unspecified; F17.200 Nicotine dependence, unspecified, uncomplicated
CPT/HCPCS: 71045; 80053; 83880; 84484; 85025; 93005; 94640; 96374; 96375; J0360; J2405; J2930; J7620

== ENCOUNTER 2021-08-13 15:17 | Emergency (ER) | payer MEDICARE, MEDICAID ==
[2021-08-13 17:12] LABS: Bacteria/HPF None Seen HPF (None Seen); Bilirubin Negative (Negative); Blood, Urine Trace (Negative); Clarity Clear (Clear); Glucose, Urine (Dipstick) Normal (Negative); Ketone, Urine 40 mg/dL (Negative); Leukocyte Negative Leu/uL (Negative); Nitrite Negative (Negative); Protein, Urine (Dipstick) 200 mg/dL (Neg-Trace); RBC/HPF 0-3 HPF (0-3); Specific Gravity, Urine 1.028 (1.002-1.036); Squamous Epithelial 0-3 HPF (0-3); Urobilinogen Normal mg/dL (Less than 2); WBC/HPF 0-3 HPF (0-3)
[2021-08-13] MEDS ORDERED: cefTRIAXone\\ROCEPHIN 1 GM VIAL ONE (17:50)
[2021-08-13] MEDS ORDERED: Lidocaine 1% PF 5 ML VIAL ONE (17:50)
[2021-08-13] MEDS ORDERED: Dexamethasone 10 MG/ML VIAL ONE (17:50)
== END 2021-08-13 19:00 | disposition home or self-care (01) ==
LOC: ERS 15:17
DX: J44.1 Chronic obstructive pulmonary disease with (acute) exacerbation (principal); N39.0 Urinary tract infection, site not specified; M19.90 Unspecified osteoarthritis, unspecified site; E78.5 Hyperlipidemia, unspecified; G62.9 Polyneuropathy, unspecified; F17.200 Nicotine dependence, unspecified, uncomplicated; Z79.899 Other long term (current) drug therapy
CPT/HCPCS: 71045; 81003; 81015; 93005; 96372; J0696; J1100

== ENCOUNTER 2021-08-18 13:35 | Inpatient (IN) | payer MEDICARE, MEDICAID ==
[2021-08-18 14:31] LABS: #Eosinphils 0.1 thou/uL (0.0-0.7); #Lymphocytes 1.4 thou/uL (1.20-3.40); #Monocytes 0.3 thou/uL (0.11-0.59); #Neutrophils 4.7 thou/uL (1.40-6.50); %Basophils 0.2 % (0.0-1.0); %Eosinophils 2.1 % (0.0-10.0); %Lymphocytes 21.8 % (21.0-51.0); %Monocytes 4.2 % (0.0-10.0); %Neutrophils 71.7 % (42.0-75.0); Hemoglobin 15.3 g/dL (12.0-16.0); Mean Corpuscular HGB CONC 33.2 g/dL (32.0-36.0); Mean Corpuscular Hemoglobin 30.5 pg (27.0-31.0); Mean Corpuscular Volume 91.7 fL (78.0-98.0); Platelet Count 309 thou/uL (130-400); RBC Distribution Width 11.5 % (11.5-14.5); Red Blood Cell (RBC) Count 5.02 mill/uL (4.20-5.40); White Blood Cell (WBC) Count 6.6 thou/uL (4.8-10.8)
[2021-08-18] MEDS ORDERED: Magnesium 2 GM/50 ML BAG (IN WATER) ONE (14:38)
[2021-08-18 14:55] LABS: ALT (SGPT) 13 U/L (8-55); AST (SGOT) 12 U/L (5-34); Alkaline Phosphatase 70 U/L (40-110); Anion Gap 18 mmol/L (10-20); BUN (Urea Nitrogen) 16 mg/dL (9.8-20.1); Bilirubin, Total 0.4 mg/dL (0.2-1.2); Calc. Creatinine Clearance 0 mL/min (70-130); Calcium 9.5 mg/dL (7.8-10.44); Carbon Dioxide 21 mmol/L (23-31); Chloride 103 mmol/L (98-107); Globulin 2.3 g/dL (2.4-3.5); Glucose 115 mg/dL (80-115); Magnesium 1.7 mg/dL (1.6-2.6); Potassium 3.4 mmol/L (3.5-5.1); Protein, Total 6.3 g/dL (5.8-8.1); Sodium 139 mmol/L (136-145)
[2021-08-18 14:56] LABS: Acetaminophen Less than 6.0 mcg/mL (10.0-30.0); Alcohol Less than 10 mg/dL (Less than 10); Salicylate Less than 8.0 mg/dL (15.0-30.0)
[2021-08-18] MEDS ORDERED: Rocuronium Bromide 10 MG/ML (10ML VIAL) ONE (15:18)
[2021-08-18] MEDS ORDERED: EPINEPHrine 1 MG/10 ML Abboject SYRINGE ONE (15:37)
[2021-08-18 15:53] LABS: Bilirubin Negative (Negative); Blood, Urine Negative (Negative); Clarity Clear (Clear); Glucose, Urine (Dipstick) Normal (Negative); Ketone, Urine 10 mg/dL (Negative); Leukocyte Negative Leu/uL (Negative); Nitrite Negative (Negative); Protein, Urine (Dipstick) 50 mg/dL (Neg-Trace); RBC/HPF 0-3 HPF (0-3); Specific Gravity, Urine 1.017 (1.002-1.036); Squamous Epithelial 0-3 HPF (0-3); Urobilinogen Normal mg/dL (Less than 2); WBC/HPF 0-3 HPF (0-3)
[2021-08-18 15:57] LABS: Amphetamine Not Detected (NotDetected); Barbiturates Screen Not Detected (NotDetected); Benzodiazepine Screen Not Detected (NotDetected); Cocaine Metabolite Screen Not Detected (NotDetected); Methadone Not Detected (NotDetected); Methamphetamine Not Detected (NotDetected); Opiate Screen Not Detected (NotDetected); Oxycodone Screen Not Detected (NotDetected); Phencyclidine (PCP) Not Detected (NotDetected); THC/Cannabinoid Screen Not Detected (NotDetected); Tricyclic Screen Detected (NotDetected)
[2021-08-18 15:58] LABS: Bacteria/HPF 1+ HPF (None Seen)
[2021-08-18 16:07] LABS: Actual Bicarbonate (HCO3a) 18.4 mEq/L (22-28); Analyzer IN Cardio ER; Base Excess (BEa) -7.8 mEq/L (-2.0 to +3.0); CO2 Tension 39.9 mmHg (35.0-45.0); Calcium, Ionized (arterial) 1.13 mmol/L (1.12-1.30); Carboxyhemoglobin (COHb) 0.3 gm% (0.0-3.0); Hemoglobin (Hb) 13.4 g/dL (12.0-16.0); O2 Tension (PaO2), arterial 172.2 mmHg (> 80.0); Potassium - ABG Lab 3.22 mmol/L (3.70-5.30); pH, Arterial 7.28 (7.35-7.45)
[2021-08-18] MEDS ORDERED: Guaifenesin DM 100-10/5 ML UDCUP PO PRN (16:07)
[2021-08-18] MEDS ORDERED: Ondansetron PF 4 MG/2 ML Vial IVP PRN (16:07)
[2021-08-18 16:08] LABS: ALV-art Gradient 63.125 mmHg (0-20); Puncture Site RRA
[2021-08-18] MEDS ORDERED: Sodium Bicarb 50 MEQ/50 ML Abboject 8.4% SYRINGE ONE (16:09)
[2021-08-18] MEDS ORDERED: Potassium Chloride 20 MEQ/100 ML PREMIX BAG ONE (16:20)
[2021-08-18] MEDS ORDERED: NS 0.9% w/ 20 MEQ KCL 1,000 ML ONE (16:25)
[2021-08-18 16:56] LABS: SARS-CoV-2 NAA Rapid Test Not Detected (NotDetected)
[2021-08-18] MEDS ORDERED: Ventilator Sedation Protocol 1 EACH FS ONE (18:36)
[2021-08-18] MEDS ORDERED: PROPOFOL 0 ML ONE (19:21)
[2021-08-18] MEDS ORDERED: Propofol 1,000 MG/100 ML VIAL IV ONE (19:26)
[2021-08-18] MEDS ORDERED: Morphine 4 MG/ML VIAL SLOW IVP PRN (20:15)
[2021-08-18] MEDS ORDERED: Fentanyl BOLUS 250 ML IVPB PRN (20:15)
[2021-08-18] MEDS ORDERED: Fentanyl CADD 100 ML IV SCH (20:15)
[2021-08-18] MEDS ORDERED: DISCONTINUE PREVIOUS NARCOTIC PAIN MEDICATIONS AND BENZODIAZEPINES FS SCH (20:15)
[2021-08-18] MEDS ORDERED: Propofol BOLUS 1,000 MG/100 ML VIAL IV PRN (20:15)
[2021-08-18] MEDS ORDERED: Lorazepam 2 MG/ML VIAL SLOW IVP PRN (20:15)
[2021-08-18] MEDS ORDERED: fentaNYL Citrate-0.9 % NaCl/PF 100 ML IVPB SCH (20:30)
[2021-08-18 21:03] VITALS: BMI 23.7
[2021-08-18 21:16] LABS: Chloride 111 mmol/L (98-107); Potassium 4.2 mmol/L (3.5-5.1); Sodium 140 mmol/L (136-145)
[2021-08-18 21:18] LABS: Anion Gap 22 mmol/L (10-20); Carbon Dioxide 11 mmol/L (23-31)
[2021-08-18 21:19] LABS: BUN (Urea Nitrogen) 15 mg/dL (9.8-20.1); Calc. Creatinine Clearance 66 mL/min (70-130); Calcium 7.8 mg/dL (7.8-10.44); Glucose 135 mg/dL (80-115)
[2021-08-18] MEDS: Famotidine/PF 20 mg/2ml Vial SLOW IVP SCH (21:42)
[2021-08-18] MEDS: Sodium Chloride 0.9% 1,000 ML IV SCH (21:42)
[2021-08-19 03:43] LABS: Anion Gap 14 mmol/L (10-20); BUN (Urea Nitrogen) 15 mg/dL (9.8-20.1); Calc. Creatinine Clearance 68 mL/min (70-130); Calcium 7.7 mg/dL (7.8-10.44); Carbon Dioxide 17 mmol/L (23-31); Chloride 113 mmol/L (98-107); Glucose 89 mg/dL (80-115); Potassium 4.2 mmol/L (3.5-5.1); Sodium 140 mmol/L (136-145)
[2021-08-19 04:07] LABS: Band 4 % (5-11); Hemoglobin 13.5 g/dL (12.0-16.0); Lymphocytes 10 % (21-51); MDiff Complete? YES; Mean Corpuscular HGB CONC 32.9 g/dL (32.0-36.0); Mean Corpuscular Hemoglobin 30.4 pg (27.0-31.0); Mean Corpuscular Volume 92.2 fL (78.0-98.0); Mean Platelet Volume 7.3 fL (7.4-10.4); Monocytes 1 % (0-10); Neutrophil 82 % (42-75); Platelet Count 213 thou/uL (130-400); Platelet Morphology Comment Appears Adequate; RBC Distribution Width 11.5 % (11.5-14.5); RBC Morphology Normal; Reactive Lymphocytes 3 % (0-10); Red Blood Cell (RBC) Count 4.43 mill/uL (4.20-5.40); White Blood Cell (WBC) Count 6.2 thou/uL (4.8-10.8)
[2021-08-19 06:57] LABS: Actual Bicarbonate (HCO3a) 19.1 mEq/L (22-28); Base Excess (BEa) -5.3 mEq/L (-2.0 to +3.0); Calcium, Ionized (arterial) 1.11 mmol/L (1.12-1.30); O2 Tension (PaO2), arterial 135.4 mmHg (> 80.0); Potassium - ABG Lab 3.96 mmol/L (3.70-5.30); pH, Arterial 7.37 (7.35-7.45)
[2021-08-19 06:59] LABS: Puncture Site RRA
[2021-08-19] MEDS ORDERED: FLU VACC QS2021-22(65YR UP)/PF 240 MCG/0.7 ML SYRINGE IM ONE (09:00)
[2021-08-19] MEDS: Enoxaparin Sodium 40 MG/0.4 ML SYRINGE SC SCH (09:01)
[2021-08-19] MEDS: Propofol 1,000 MG/100 ML VIAL IV PRN ×2 (09:01→22:07)
[2021-08-19] MEDS: Sodium Chloride 0.9% 1,000 ML IV SCH ×2 (09:01→20:26)
[2021-08-19] MEDS: Famotidine/PF 20 mg/2ml Vial SLOW IVP SCH ×2 (09:01→20:26)
[2021-08-20 04:02] LABS: #Lymphocytes 2.4 thou/uL (1.20-3.40); #Monocytes 0.9 thou/uL (0.11-0.59); #Neutrophils 6.7 thou/uL (1.40-6.50); %Basophils 0.5 % (0.0-1.0); %Eosinophils 0.4 % (0.0-10.0); %Lymphocytes 23.8 % (21.0-51.0); %Monocytes 8.5 % (0.0-10.0); %Neutrophils 66.8 % (42.0-75.0); Hemoglobin 12.3 g/dL (12.0-16.0); Mean Corpuscular HGB CONC 32.3 g/dL (32.0-36.0); Mean Corpuscular Hemoglobin 30.4 pg (27.0-31.0); Mean Platelet Volume 7.6 fL (7.4-10.4); Platelet Count 250 thou/uL (130-400); RBC Distribution Width 11.9 % (11.5-14.5); Red Blood Cell (RBC) Count 4.06 mill/uL (4.20-5.40)
[2021-08-20 05:33] LABS: ALT (SGPT) 11 U/L (8-55); AST (SGOT) 11 U/L (5-34); Albumin 2.7 g/dL (3.4-4.8); Alkaline Phosphatase 49 U/L (40-110); Anion Gap 12 mmol/L (10-20); BUN (Urea Nitrogen) 16 mg/dL (9.8-20.1); Bilirubin, Total 0.2 mg/dL (0.2-1.2); Calc. Creatinine Clearance 73 mL/min (70-130); Calcium 7.4 mg/dL (7.8-10.44); Carbon Dioxide 15 mmol/L (23-31); Chloride 117 mmol/L (98-107); Glucose 69 mg/dL (80-115); Magnesium 1.7 mg/dL (1.6-2.6); Potassium 3.1 mmol/L (3.5-5.1); Protein, Total 4.7 g/dL (5.8-8.1); Sodium 141 mmol/L (136-145)
[2021-08-20] MEDS: Propofol 1,000 MG/100 ML VIAL IV PRN (06:07)
[2021-08-20 07:05] VITALS: BP 153/90
[2021-08-20 07:16] LABS: Actual Bicarbonate (HCO3a) 19.5 mEq/L (22-28); Base Excess (BEa) -4.5 mEq/L (-2.0 to +3.0); CO2 Tension 32.8 mmHg (35.0-45.0); Calcium, Ionized (arterial) 1.17 mmol/L (1.12-1.30); Carboxyhemoglobin (COHb) 0.3 gm% (0.0-3.0); Hemoglobin (Hb) 13.3 g/dL (12.0-16.0); O2 Tension (PaO2), arterial 167.3 mmHg (> 80.0); Potassium - ABG Lab 3.08 mmol/L (3.70-5.30); Puncture Site RRA; pH, Arterial 7.39 (7.35-7.45)
[2021-08-20] MEDS: Enoxaparin Sodium 40 MG/0.4 ML SYRINGE SC SCH (08:34)
[2021-08-20] MEDS: Famotidine/PF 20 mg/2ml Vial SLOW IVP SCH ×2 (08:34→20:39)
[2021-08-20] MEDS: Magnesium 2 GM/50 ML 2 GM in Premix Bag 1 BAG IVPB SCH ×2 (10:11→11:02)
[2021-08-20] MEDS: Potassium Chloride 20 MEQ in Premix Bag 1 BAG IVPB SCH ×3 (10:11→14:11)
[2021-08-20] MEDS: Sodium Chloride 0.9% 1,000 ML IV SCH (13:42)
[2021-08-21 03:19] LABS: #Eosinphils 0.1 thou/uL (0.0-0.7); #Lymphocytes 1.6 thou/uL (1.20-3.40); #Monocytes 0.7 thou/uL (0.11-0.59); #Neutrophils 5.4 thou/uL (1.40-6.50); %Basophils 0.4 % (0.0-1.0); %Eosinophils 1.7 % (0.0-10.0); %Lymphocytes 20.5 % (21.0-51.0); %Monocytes 8.8 % (0.0-10.0); %Neutrophils 68.6 % (42.0-75.0); Mean Corpuscular HGB CONC 34.2 g/dL (32.0-36.0); Mean Corpuscular Hemoglobin 31.2 pg (27.0-31.0); Mean Corpuscular Volume 91.3 fL (78.0-98.0); Mean Platelet Volume 6.7 fL (7.4-10.4); Platelet Count 265 thou/uL (130-400); RBC Distribution Width 11.6 % (11.5-14.5); Red Blood Cell (RBC) Count 4.18 mill/uL (4.20-5.40); White Blood Cell (WBC) Count 7.9 thou/uL (4.8-10.8)
[2021-08-21 03:41] LABS: ALT (SGPT) 14 U/L (8-55); AST (SGOT) 18 U/L (5-34); Albumin 3.3 g/dL (3.4-4.8); Alkaline Phosphatase 58 U/L (40-110); Anion Gap 10 mmol/L (10-20); BUN (Urea Nitrogen) 9 mg/dL (9.8-20.1); Bilirubin, Total 0.3 mg/dL (0.2-1.2); Calc. Creatinine Clearance 70 mL/min (70-130); Calcium 8.1 mg/dL (7.8-10.44); Carbon Dioxide 23 mmol/L (23-31); Chloride 111 mmol/L (98-107); Globulin 2.3 g/dL (2.4-3.5); Glucose 108 mg/dL (80-115); Potassium 3.6 mmol/L (3.5-5.1); Protein, Total 5.6 g/dL (5.8-8.1); Sodium 140 mmol/L (136-145)
[2021-08-21] MEDS: Sodium Chloride 0.9% 1,000 ML IV SCH ×2 (04:14→12:34)
[2021-08-21] MEDS: Enoxaparin Sodium 40 MG/0.4 ML SYRINGE SC SCH (08:29)
[2021-08-21] MEDS: Famotidine/PF 20 mg/2ml Vial SLOW IVP SCH ×3 (08:30→20:37)
[2021-08-21] MEDS ORDERED: Albuterol Sulfate 2.5 mg/3 ml Neb NEB PRN (11:37)
[2021-08-21 12:44] LABS: Anion Gap 20 mmol/L (10-20); BUN (Urea Nitrogen) 8 mg/dL (9.8-20.1); Calc. Creatinine Clearance 73 mL/min (70-130); Calcium 8.6 mg/dL (7.8-10.44); Carbon Dioxide 18 mmol/L (23-31); Chloride 105 mmol/L (98-107); Glucose 156 mg/dL (80-115); Potassium 3.5 mmol/L (3.5-5.1); Sodium 139 mmol/L (136-145)
[2021-08-21 15:37] VITALS: TEMP 98.4
[2021-08-21] MEDS ORDERED: Budesonide 0.25 MG/2 ML NEB INH SCH (18:30)
[2021-08-21] MEDS ORDERED: Atorvastatin Calcium 40 MG TAB PO SCH (21:00)
[2021-08-22] MEDS ORDERED: Lisinopril 10 MG TAB PO SCH (09:00)
== END 2021-08-21 21:48 | disposition short-term general hospital (02) | DRG 917 ==
LOC: ERS 13:35 → CCU 15:46 → IMCU/EMU 08-20 16:19
PROVIDERS: ADMIT Student in an Organized Health Care Education/Training Program; ATTEND Student in an Organized Health Care Education/Training Program
PROC: 0BH17EZ Insertion of Endotracheal Airway into Trachea, Via Natural or Artificial Opening (ICD-10-PCS; principal; 2021-08-18)
PROC: 5A1945Z Respiratory Ventilation, 24-96 Consecutive Hours (ICD-10-PCS; 2021-08-18)
PROC: 0D9770Z Drainage of Stomach, Pylorus with Drainage Device, Via Natural or Artificial Opening (ICD-10-PCS; 2021-08-18)
DX: T43.592A Poisoning by other antipsychotics and neuroleptics, intentional self-harm, initial encounter (principal); J96.01 Acute respiratory failure with hypoxia; E87.2 Acidosis; T43.3X2A Poisoning by phenothiazine antipsychotics and neuroleptics, intentional self-harm, initial encounter; T42.6X2A Poisoning by other antiepileptic and sedative-hypnotic drugs, intentional self-harm, initial encounter; Z20.822 Contact with and (suspected) exposure to COVID-19; F32.A Depression, unspecified; J44.9 Chronic obstructive pulmonary disease, unspecified; E78.5 Hyperlipidemia, unspecified; G62.9 Polyneuropathy, unspecified; M19.90 Unspecified osteoarthritis, unspecified site; F41.9 Anxiety disorder, unspecified; F43.10 Post-traumatic stress disorder, unspecified; F17.210 Nicotine dependence, cigarettes, uncomplicated; I10 Essential (primary) hypertension; M54.9 Dorsalgia, unspecified; G89.29 Other chronic pain; Z96.641 Presence of right artificial hip joint; Z88.5 Allergy status to narcotic agent; Z88.0 Allergy status to penicillin; Z88.8 Allergy status to other drugs, medicaments and biological substances; Z79.890 Hormone replacement therapy; Z78.1 Physical restraint status; Z79.899 Other long term (current) drug therapy; Z79.51 Long term (current) use of inhaled steroids; Z98.890 Other specified postprocedural states
CPT/HCPCS: 36415; 36600; 71045; 80048; 80053; 80306; 80307; 81003; 81015; 82805; 83735; 84484; 85025; 93005; 93010; 94002; 94003; 94640; J0171; J1650; J2060; J2704; J3475; J3480; J7050; J7620; J7626; S0028; U0002